=== PATIENT | female | born 2000 | race Hispanic/Latino ===

== ENCOUNTER 2025-06-29 23:58 | Emergency (ER) | payer OTHER ==
[~2025-06-29] VITALS: Ht 152.4 cm; Wt 72.6 kg
--- NOTE | 2025-06-30 00:10 | NUR ---
UA COLLECTED AND SENT
--- NOTE | 2025-06-30 00:54 | ERN ---
General Chief Complaint: Mechanical Fall Stated Complaint: FALL Time Seen by MD: 00:03 Source: patient History of Present Illness Initial Comments The 24-year-old female who was roller skating with her dog when she fell backwards hitting the back of her head. She does not have a clear memory of the event or for some of the events a head of the fall. She has a associated nausea and vomiting. She brought herself to the emergency room to be evaluated. Triage placed her in a C-collar. Allergies: Coded Allergies: No Known Allergies (Unverified Allergy, Unknown, 06/30/25) Past Medical History Past Medical History: Anxiety, Depression Past Surgical History: Appendectomy Constitutional: (-) chills, (-) diaphoresis, (-) fever, (-) malaise, (-) weakness, (-) other documentation EENTM: (-) eye pain, (-) blurred vision, (-) tearing, (-) double vision, (-) ear pain, (-) ear discharge, (-) nose pain, (-) nose congestion, (-) throat pain, (-) Throat swelling, (-) mouth pain, (-) tooth pain, (-) mouth swelling, (-) other documentation Respiratory: (-) cough, (-) orthopnea, (-) short of breath, (-) stridor, (-) wheezing, (-) other documentation Cardiovascular: (-) chest pain, (-) edema, (-) palpitations, (-) syncope, (-) dyspnea on exertion, (-) other documentation Gastrointestinal/Abdominal: (+) nausea Genitourinary: (-) vaginal discharge, (-) vaginal bleeding, (-) dysuria, (-) frequency, (-) hematuria, (-) pain, (-) other documentation Musculoskeletal: (-) Neck pain, (-) back pain, (-) Flank Pain, (-) joint pain, (-) joint swelling, (-) muscle pain, (-) muscle stiffness, (-) gout, (-) other documentation Skin: (+) contusion Neuro: (-) altered mental status, (-) headache, (-) syncope, (-) paralysis, (-) numbness, (-) seizure, (-) pre-existing deficit, (-) tremors, (-) weakness, (-) dizziness, (-) slurred speech, (-) vertigo, (-) other documentation Physical Exam General Appearance: (+) no apparent distress Orientation: (+) alert, (+) oriented x 3 Head/Face Trauma: No Eye: bilateral eye normal inspection, bilateral eye PERRL, bilateral eye EOMI Ear, Nose, Throat: (+) hearing grossly normal, (+) normal ENT inspection, (+) moist mucous membraine Neck: (+) normal inspection, (+) supple, (+) full range of motion, (+) non- tender Neck Comment No C-spine tenderness no paraspinal muscle tenderness Respiratory: (+) chest non-tender, (+) lungs clear Heart: (+) regular Vascular: (+) no edema, (+) normal peripheral pulse Gastrointestinal: (+) soft, (+) non-tender, (+) bowel sound present Results Laboratory and Microbiology Lab and Micro Result Laboratory Tests Test 06/30/25 00:10 Urine HCG, Qualitative NEGATIVE (NEGATIVE) MDM Sounds like the patient has a concussion. I will get a CT scan rule out intra cerebral hemorrhage. Please see procedure note I cleared her C-collar. Head CT is negative except for a soft tissue injury in the right parietal s scalp ED Course Orders Procedure Category Date Status Time Ct Head/Brain W/O CT 06/30/25 Resulted Contrast 00:44 ,Urine Test LAB 06/30/25 Complete 02:02 Neomy PHA 06/30/25 Complete Sulf/Bacitra/Polymyxin 02:30 Acetaminophen 500mg PHA 06/30/25 Complete Tab (Tylenol 500mg T 02:30 Current Medications Medications (Trade) Dose Ordered Sig/Hoda Route PRN Reason Start Time Stop Time Status Last Admin Dose Admin Acetaminophen (TYLenol 500MG TAB) 1,000 mg ONCE ONCE PO 06/30/25 02:30 06/30/25 02:31 DC 06/30/25 02:35 Neomycin/ Polymyxin/ Bacitracin (Triple Antibiotic Ointment) 1 appl ONCE ONCE TP 06/30/25 02:30 06/30/25 02:31 DC Vital Signs Date Time Temp Pulse Resp B/P (MAP) Pulse Ox O2 Delivery O2 Flow Rate FiO2 06/30/25 02:40 98.6 88 20 144/89 98 Room Air* 0 21 06/30/25 00:00 97.5 103 20 146/89 100 Room Air Additional Procedures Additional Procedures : Progress Patient states she has not had any mood or mind-altering substances i.e. no alcohol no cocaine no heroin no marijuana. She is alert and oriented x3. I removed the C-collar. Patient had no C-spine tenderness no para spinal muscle tenderness. She can flex extend and turn her head to the left than the right with no pain and no numbness or tingling in her extremities. I DC the C-collar. DX & DISP Disposition: Discharge Departure Impression: Primary Impression: Concussion Additional Impressions: Postconcussive syndrome, Head trauma Condition: Stable Additional Instructions: It will take two or three weeks for the blood to reabsorbed from the hematoma the bruising in her posterior scalp. You may have a symptoms of dizziness vertigo emesis over the next month as part of the postconcussive syndrome. Please return if these symptoms get so bad that you become incapacitated and can not keep herself well hydrated. IRMA HENSON MD Jun 30, 2025 00:54
--- NOTE | 2025-06-30 02:27 | NUR ---
PT TO CT AT THIS TIME
--- NOTE | 2025-06-30 02:31 | NUR ---
CT MADE AWARE OF PT ROOM ASSIGNMENT
--- NOTE | 2025-06-30 02:44 | HMCIMG ---
EXAM: Non-contrast CT examination of the Brain CLINICAL HISTORY: Concussion. Fall. TECHNIQUE: Thin collimated axial CT images of the brain were obtained with sagittal and coronal reformatted images also submitted. CT scan is done according to ALARA (As Low as Reasonably Achievable). CONTRAST USED: None. COMPARISON: None provided. FINDINGS: No acute intracranial abnormality is present. No acute cortical infarction, hemorrhage, mass, or mass effect. No hydrocephalus or abnormal extra-axial fluid collections. The posterior fossa is unremarkable. The skull base and calvarium are intact. 0.9 cm polyp or submucosal retention cyst within the left posterior ethmoid sinus. The remaining included portions of the paranasal sinuses are clear. The mastoid air cells are clear bilaterally. Subgaleal hematoma in the right posterior parietal scalp near the vertex. IMPRESSION: No acute intracranial abnormality is present. Subgaleal hematoma in the right posterior parietal scalp near the vertex. /[place]
[2025-06-30] MEDS: NEOMY SULF/BACITRA/POLYMYXIN B 1 EACH PACKET TP ONE (03:03)
[2025-06-30 03:05] VITALS: BP 117/92; PULSE 78; RESP 20; TEMP 98.6; O2SAT 99
== END 2025-06-30 03:12 | disposition home or self-care (01) ==
LOC: EDH 23:58
DX: S06.0X0A Concussion without loss of consciousness, initial encounter (principal); R11.2 Nausea with vomiting, unspecified; Z90.49 Acquired absence of other specified parts of digestive tract; W18.09XA Striking against other object with subsequent fall, initial encounter; Y93.51 Activity, roller skating (inline) and skateboarding; Y92.89 Other specified places as the place of occurrence of the external cause; Y99.8 Other external cause status
CPT/HCPCS: 70450; 81025; 99284